=== PATIENT | female | born 1950 | race Two or more races ===

== ENCOUNTER 2018-02-22 08:56 | Outpatient (CLI) | payer OTHER | END 2018-02-22 09:00 | disposition home or self-care (01) | LOC: SONOGRAMA 08:56 | DX: E04.1 Nontoxic single thyroid nodule (principal) ==

== ENCOUNTER 2020-05-01 11:15 | Inpatient (IN) | payer OTHER ==
[~2020-05-01] VITALS: Ht 154.9 cm; Wt 69.9 kg
[2020-05-01] MEDS ORDERED: TOPROL XL25 M1 PO (14:53)
[2020-05-01] MEDS ORDERED: ASPIR 8181 MG PO (14:54)
[2020-05-01] MEDS ORDERED: LEVOTHYROXINE25 MCG PO (14:54)
[2020-05-01] MEDS ORDERED: ATORVASTATIN CA20 MG PO (14:55)
[2020-05-01] MEDS ORDERED: PANTO PO (14:55)
[2020-05-01] MEDS ORDERED: REFRESH OPTIVE1 EAC1 OP (14:57)
[2020-05-01] MEDS ORDERED: MURO-12815 M1 (14:57)
[2020-05-06] MEDS ORDERED: PANTOPRAZOLE SO20 MG PO (08:03)
[2020-05-09] MEDS ORDERED: TRAMADOL HCL50 MG PO (10:32)
== END 2020-05-09 12:57 | disposition home or self-care (01) | DRG 331 ==
LOC: SURH 05-06 06:56 → O/R 05-06 06:56 → SURH 05-06 08:45 → O/R 05-06 11:15 → SURH 05-06 13:14
PROVIDERS: ADMIT Surgery; ATTEND Surgery
PROC: 07BC4ZX Excision of Pelvis Lymphatic, Percutaneous Endoscopic Approach, Diagnostic (ICD-10-PCS; 2020-05-06)
PROC: 0DTF4ZZ Resection of Right Large Intestine, Percutaneous Endoscopic Approach (ICD-10-PCS; principal; 2020-05-06 08:45)
DX: D12.2 Benign neoplasm of ascending colon (principal); I11.9 Hypertensive heart disease without heart failure; E03.9 Hypothyroidism, unspecified; E78.5 Hyperlipidemia, unspecified; R59.0 Localized enlarged lymph nodes